=== PATIENT | female | born 1955 | race Caucasian/White ===

== ENCOUNTER 2017-06-10 11:40 | Day surgery (SDC) | payer OTHER ==
[2017-06-10] MEDS ORDERED: PROPOFOL 20 ML (14:39)
[2017-06-10] MEDS ORDERED: FENTAnyl 50 MCG/ML VIAL (14:39)
[2017-06-10] MEDS ORDERED: MIDAZOLAM 1 MG/ML 2 ML INJ (14:39)
== END 2017-06-10 17:57 | disposition home or self-care (01) ==
LOC: GIL 11:40
DX: Z12.11 Encounter for screening for malignant neoplasm of colon (principal); K64.8 Other hemorrhoids; K57.90 Diverticulosis of intestine, part unspecified, without perforation or abscess without bleeding; I10 Essential (primary) hypertension; Z86.73 Personal history of transient ischemic attack (TIA), and cerebral infarction without residual deficits
CPT/HCPCS: 45378